=== PATIENT | female | born 2000 | race Caucasian/White ===

== ENCOUNTER → 2018-08-29 | Outpatient (CLI) | payer OTHER ==
--- NOTE | 2018-08-29 14:32 | US ---
EXAMINATION TYPE: Transabdominal DATE OF EXAM: 08/29/2018 1:41 PM COMPARISON: NONE CLINICAL HISTORY: Z36 CONFIRM DATES. EXAM PERFORMED: Transabdominal (TA) EXAM MEASUREMENTS: GESTATIONAL AGE / DATING Physician Established: (13 weeks/3 days) EDC: 03/03/2019 Dates by LMP: (13 weeks/3 days) EDC: 03/03/2019 Dates by First Scan: NO PREVIOUS Dates by Current Scan for: (13 weeks/3 days) EDC: 03/03/2019 MATERNAL ANATOMY Uterus: 12.5 X 10.2 X11.2 CM Right Ovary: OUT OF FIELD OF VIEW Left Ovary: OUT OF FIELD OF VIEW Post CDS / Adnexa: WNL Presence of free fluid: NO Presence of corpus luteal cyst: NO Presence of subchorionic bleed: NO GESTATION / SURVEY CRL: 7.1 CM (13 weeks/3 days) Heart Rate: 146 bpm Rhythm: Normal IUP: Viable IUP Date of LMP: 05/27/2018 Beta HcG (if available): Impression: SINGLE, VIABLE IUP OF 13 WKS 3 DAYS WITH EDC 03/03/2019
== END | disposition home or self-care (01) ==
LOC: RADUSWWP 12:55
PROVIDERS: ATTEND Obstetrics & Gynecology
DX: Z36.9 Encounter for antenatal screening, unspecified (principal); Z3A.13 13 weeks gestation of pregnancy
CPT/HCPCS: 76801

== ENCOUNTER 2019-02-26 03:00 | Inpatient (IN) | payer OTHER ==
[2019-02-26] MEDS ORDERED: CARBOPROST TROMETHAMINE 250 MCG/ML 1 ML AMP IM PRN (03:49)
[2019-02-26] MEDS ORDERED: AMPICILLIN 2,000 MG in SODIUM CHLORIDE 0.9% 100 ML IVPB STA (03:49)
[2019-02-26] MEDS ORDERED: METHYLERGONOVINE 0.2 MG/ML 1 ML AMP IM PRN (03:49)
[2019-02-26] MEDS ORDERED: LIDOCAINE 0.5% (PF) 5 MG/ML (50 ML SDV) SQ PRN (03:49)
[2019-02-26] MEDS ORDERED: OXYTOCIN 10 UNIT/ML 1 ML VIAL IM PRN (03:49)
[2019-02-26] MEDS ORDERED: TERBUTALINE 1 MG/ML VIAL SQ PRN (03:49)
[2019-02-26 04:19] VITALS: BMI 23.0
[2019-02-26 04:34] LABS: Basophils % (A) 0 %; Eosinophils # (A) 0.2 k/uL (0-0.7); Eosinophils % (A) 1 %; HCT 38.3 % (34.0-46.0); HGB 12.6 gm/dL (11.4-16.0); Lymphocytes # (A) 1.7 k/uL (1.0-4.8); Lymphocytes % (A) 15 %; MCH 28.7 pg (25.0-35.0); MCHC 32.9 g/dL (31.0-37.0); MCV 87.2 fL (80.0-100.0); Mean Platelet Volume 9.4; Monocytes # (A) 0.6 k/uL (0-1.0); Monocytes % (A) 5 %; Neutrophils % (A) 78 %; Platelet Count 180 k/uL (150-450); RDW 13.3 % (11.5-15.5); WBC 11.6 k/uL (3.8-10.6)
[2019-02-26] MEDS: LACTATED RINGERS 1,000 ML IV SCH ×4 (04:37→21:07)
[2019-02-26] MEDS: OXYTOCIN 30 UNITS/500 ML NS 30 UNIT in SALINE 1 500ML.BAG IV SCH (05:43)
[2019-02-26] MEDS ORDERED: BUTORPHANOL 1 MG/ML 1 ML VIAL IV PRN (07:51)
[2019-02-26] MEDS: AMPICILLIN 1,000 MG in SODIUM CHLORIDE 0.9% 50 ML IVPB SCH ×2 (09:18→14:02)
[2019-02-26] MEDS ORDERED: fentaNYL (PF) 50 MCG/ML 5 ML AMP ONE (09:23)
[2019-02-26] MEDS ORDERED: SODIUM CHLORIDE 0.9% 100 ML BAG ONE (09:23)
[2019-02-26] MEDS ORDERED: ROPIVACAINE 5MG/ML 20ML VIAL ONE (09:23)
[2019-02-26] MEDS ORDERED: CITRIC ACID-SODIUM CITRATE 15 ML CUP PO ONE (15:17)
[2019-02-26] MEDS ORDERED: MORPHINE SULFATE (PF) 0.3 MG/0.3 ML SYR ONE (15:36)
[2019-02-26] MEDS ORDERED: OXYTOCIN 10 UNIT/ML 1 ML VIAL ONE (15:36)
[2019-02-26] MEDS ORDERED: HYDROmorphone (PF) 1 MG/ML ONE (15:36)
[2019-02-26] MEDS ORDERED: ONDANSETRON 4 MG/2 ML VIAL ONE (15:36)
[2019-02-26] MEDS ORDERED: NALBUPHINE 10 MG/ML (1 ML AMP) ONE (15:36)
[2019-02-26] MEDS ORDERED: CHLOROPROCAINE 3% 30 MG/ML 20 ML VIAL ONE (15:36)
[2019-02-26] MEDS ORDERED: KETOROLAC 30 MG/ML 1 ML VIAL ONE (15:36)
[2019-02-26] MEDS ORDERED: HYDROcodone/APAP 7.5-325MG 1 EACH TAB PO PRN (16:16)
[2019-02-26] MEDS ORDERED: NALOXONE 0.4 MG/ML 1 ML VIAL IV PRN (16:16)
[2019-02-26] MEDS ORDERED: MEASLES-MUMPS-RUBELLA VACC/PF 12,500 UNIT/0.5 ML VIAL SQ ONE (16:16)
[2019-02-26] MEDS ORDERED: diphenhydrAMINE 50 MG CAP PO PRN (16:16)
[2019-02-26] MEDS ORDERED: ONDANSETRON 4 MG/2 ML VIAL IVP PRN (16:16)
[2019-02-26] MEDS ORDERED: diphenhydrAMINE 25 MG CAP PO PRN (16:16)
[2019-02-26] MEDS ORDERED: METOCLOPRAMIDE 5 MG/ML 2 ML VIAL IVP PRN (16:16)
[2019-02-26] MEDS ORDERED: ZOLPIDEM 5 MG TAB PO PRN (16:16)
[2019-02-26] MEDS ORDERED: ACETAMINOPHEN TAB 325 MG TAB PO PRN (16:16)
[2019-02-26] MEDS ORDERED: diphenhydrAMINE 50 MG/ML 1 ML VIAL IVP PRN ×2 (16:16)
[2019-02-26] MEDS ORDERED: KETOROLAC 30 MG/ML 1 ML VIAL IVP PRN (16:16)
--- NOTE | 2019-02-26 16:18 | P.HPOB ---
History of Present Illness H&P Date: 02/26/19 Chief Complaint: Intrauterine at term: Spontaneous rupture membranes Patient is a 18-year-old at 39 weeks gestation who arrives following spontaneous rupture membranes at approximately 1:30 AM. Her course heavy, complicated by several episodes of numbness and tingling for which she was seen in the emergency room. All labs and studies were found to be normal and we could not find a specific reason for her symptoms. We did consult maternal- medicine but there was no further recommendations and symptoms resolve spontaneously at approximately 33 weeks. Otherwise she is feeling well and angela every 2-3 minutes. She is dilated to 6 cm heart percent effaced basically 0 station. Category 1 tracing is noted. Past Medical History Past Medical History: Asthma Additional Past Medical History / Comment(s): as a child History of Any Multi-Drug Resistant Organisms: None Reported Past Surgical History: No Surgical Hx Reported Past Anesthesia/Blood Transfusion Reactions: No Reported Reaction Past Psychological History: Depression Smoking Status: Never smoker Past Alcohol Use History: None Reported Past Drug Use History: None Reported - Past Family History Mother Family Medical History: No Reported History Medications and Allergies Allergies Allergy/AdvReac Type Severity Reaction Status Date / Time Sulfa (Sulfonamide Allergy Swelling Verified 02/26/19 03:09 Antibiotics) Exam Osteopathic Statement: *. No significant issues noted on an osteopathic structural exam other than those noted in the History and Physical/Consult. Vital Signs Temp Pulse Resp BP Pulse Ox 02/26/19 03:10 98.9 F 92 16 133/77 92 L Intake and Output 02/26/19 02/26/19 02/26/19 06:59 14:59 22:59 Intake Total 2049 Output Total 250 Balance 1800 Intake: Intake, IV Titration 2049 Amount Ampicillin 1,000 mg In 50 Sodium Chloride 0.9% 50 ml @ 100 mls/hr IVPB Q4H COLLIN Rx#:[id number] Lactated Ringers 1,000 ml 2000 @ 125 mls/hr IV .Q8H COLLIN Rx#:[id number] Output: Urine 250 Other: # Voids 2 Weight 66.723 kg - OBG Physical Exam Breast: both: normal (no masses) Abdomen: bowel sounds normal, no diffuse tenderness, no bruit present, no guarding noted, no hepatomegaly, no splenomegaly, no mass Vulva: both: normal Vagina: normal moisture, no discharge Cervix: no lesion, no discharge Uterus: normal size, normal contour Adnexa: both: normal Anus/Rectum: normal perianal skin, no rectal mass, no hemorrhoids, heme negative Results Result Diagrams: 02/26/19 04:20 Abnormal Lab Results - Last 24 Hours (Table) 02/26/19 Range/Units 04:20 WBC 11.6 H (3.8-10.6) k/uL Neutrophils # 9.0 H (1.3-7.7) k/uL
--- NOTE | 2019-02-26 16:25 | P.OP ---
Date of Procedure: 02/26/19 Preoperative Diagnosis: Intrauterine at term: Failure to descend/arrest of second stage of labor Postoperative Diagnosis: Same with cephalopelvic disproportion Procedure(s) Performed: Primary low transverse section Anesthesia: epidural Surgeon: Chuck Tellez Shooter Helper #1: Dodie Muniz Estimated Blood Loss (ml): 100 IV fluids (ml): 600 Urine output (ml): 50 Pathology: none sent Condition: stable Disposition: floor Operative Findings: Male scores of 4 and 8 at one and 5 minutes weight of 7 lbs. 0 oz. Description of Procedure: Patient was taken to the operating suite where a epidural anesthetic was found be adequate. A risks and benefits discussion was held with the patient prior to proceeding to the section and did include specifically bleeding and infection and some difficulties delivery of the baby due to how low she was. Baby was had biparietal diameter at 0 station but significant But had developed and the baby was not coming any lower despite 2 hours of adequate pushing. Initially a Pfannenstiel skin incision was made and this incision was then carried through to the underlying layer of the fascia with the second knife. Fascia was then nicked in midline and this opening was extended laterally with Lagunas scissors. Superior and inferior aspect of this incision were then grasped tented up and bluntly and sharply dissected off the rectus muscles. Rectus muscles were then divided midline and blunt dissection through the peritoneum was made. This opening was then extended superiorly and inferiorly with good visualization of both bowel bladder. Bladder blade was placed and the bladder flap identified. It was entered sharply with Metzenbaums sponsors and extended across face the uterus. Knife was then used to incise uterus and this incision was fully developed with hemostat and then bluntly extended. Baby's head was very low in the vagina and a nurse was preparing to push from below but we were able to rotate the baby up high enough that we're able to bring the baby into the incision and out of the vagina. Once baby was brought up mouth nares were bulb suctioned anterior posterior shoulders were easily delivered followed by the remainder the baby. Nursery personnel was present and assumed care immediately. Umbilical cord was clamped cut usual fashion. Placenta was then delivered intact Pitocin was added to the IV. Uterus was wasn't exteriorized cleared of clots and debris and closed in 2 layers with 0 Vicryl suture following placement of Allis clamps to delineate boundaries. Once excellent hemostasis was felt to be obtained 3-0 Vicryl was used to reapproximate the bladder flap. Blood and debris was then suctioned from the posterior cul-de-sac and uterus was reinserted into the abdomen. Peritoneal layer was then reapproximated with 0 Vicryl suture. Fascial layer was closed with 0 Vicryl suture. One layer of 3-0 Vicryl was used to reapproximate the skin. Skin was then closed with 3-0 Vicryl subcuticular. Sponge, lap, needle counts were all correct 2. Patient was then taken to the recovery room in stable and satisfactory condition.
[2019-02-27] MEDS: SENNOSIDES-DOCUSATE SODIUM 1 EACH TAB PO SCH ×2 (01:16→08:45)
[2019-02-27] MEDS: LACTATED RINGERS 1,000 ML IV SCH ×4 (05:05→17:43)
[2019-02-27] MEDS: AMPICILLIN 1,000 MG in SODIUM CHLORIDE 0.9% 50 ML IVPB SCH ×2 (05:07→05:08)
[2019-02-27 07:28] LABS: Basophils % (A) 0 %; Eosinophils # (A) 0.1 k/uL (0-0.7); Eosinophils % (A) 1 %; HCT 32.7 % (34.0-46.0); HGB 10.8 gm/dL (11.4-16.0); Lymphocytes # (A) 1.5 k/uL (1.0-4.8); Lymphocytes % (A) 10 %; MCV 87.8 fL (80.0-100.0); Mean Platelet Volume 9.5; Monocytes # (A) 0.6 k/uL (0-1.0); Monocytes % (A) 4 %; Neutrophils # (A) 13.2 k/uL (1.3-7.7); Neutrophils % (A) 85 %; Platelet Count 165 k/uL (150-450); RBC 3.73 m/uL (3.80-5.40); RDW 14.5 % (11.5-15.5); WBC 15.5 k/uL (3.8-10.6)
--- NOTE | 2019-02-27 08:48 | P.PNOBGPC ---
Subjective - Subjective Principal diagnosis: Postop day 1 Interval history: Patient doing very well postop day 1. She is involuting, voiding tolerating a diet. Patient reports: Reports appetite normal, Reports voiding normally, Reports pain well controlled, Reports ambulating normally : doing well Objective - Vital Signs Latest vital signs: Vital Signs Temp Pulse Resp BP Pulse Ox 02/27/19 04:00 98.1 F 71 18 117/61 97 02/27/19 00:00 98.1 F 71 18 122/63 97 02/26/19 20:00 98.1 F 73 18 129/80 98 02/26/19 18:26 98.4 F 80 18 135/87 100 02/26/19 17:56 98.2 F 64 18 139/83 100 02/26/19 17:26 96 18 139/76 98 02/26/19 17:11 18 118/57 98 02/26/19 16:56 75 18 113/54 97 02/26/19 16:41 64 16 103/57 99 02/26/19 16:26 98.5 F 96 18 109/70 100 Intake and Output 02/26/19 02/27/19 02/27/19 22:59 06:59 14:59 Intake Total 200 Output Total 600 Balance -400 Intake: Oral 200 Output: Urine 600 Other: Voiding Method Indwelling Catheter # Voids 100 # Emeses 1 - Exam Lungs: bilateral: normal Chest: Normal S1, Normal S2 Extremities: Present: normal Abdomen: Present: normal appearance, soft. Absent: distention, tenderness Incision: Present: normal, dry, intact Uterus: Present: normal, firm - Labs Labs: Abnormal Lab Results - Last 24 Hours (Table) 02/27/19 Range/Units 06:24 WBC 15.5 H (3.8-10.6) k/uL RBC 3.73 L (3.80-5.40) m/uL Hgb 10.8 L (11.4-16.0) gm/dL Hct 32.7 L (34.0-46.0) % Neutrophils # 13.2 H (1.3-7.7) k/uL
[2019-02-27] MEDS: IBUPROFEN 600 MG TAB PO PRN (15:56)
[2019-02-27] MEDS: OXYTOCIN 30 UNITS/500 ML NS 30 UNIT in SALINE 1 500ML.BAG IV SCH (17:42)
[2019-02-28] MEDS: IBUPROFEN 600 MG TAB PO PRN ×3 (00:24→23:18)
[2019-02-28] MEDS: SENNOSIDES-DOCUSATE SODIUM 1 EACH TAB PO SCH ×3 (00:31→23:18)
--- NOTE | 2019-02-28 07:00 | P.PNOBGPC ---
Subjective - Subjective Patient reports: Reports appetite normal, Reports voiding normally, Reports pain well controlled, Reports ambulating normally : doing well Objective - Vital Signs Latest vital signs: Vital Signs Temp Pulse Resp BP Pulse Ox 02/28/19 00:00 98.2 F 88 18 115/59 98 02/27/19 20:00 97.6 F 85 18 135/59 02/27/19 16:00 99.0 F 89 16 127/68 02/27/19 12:00 16 02/27/19 09:00 98.1 F 72 16 105/54 Intake and Output 02/27/19 02/27/19 02/28/19 14:59 22:59 06:59 Intake Total 250 Balance 250 Intake: Oral 250 Other: # Voids 1 - Exam Lungs: bilateral: normal Chest: Normal S1, Normal S2 Extremities: Present: normal Abdomen: Present: normal appearance, soft. Absent: distention, tenderness Incision: Present: normal, dry, intact Uterus: Present: normal, firm - Labs Labs: Abnormal Lab Results - Last 24 Hours (Table) 02/27/19 Range/Units 06:24 WBC 15.5 H (3.8-10.6) k/uL RBC 3.73 L (3.80-5.40) m/uL Hgb 10.8 L (11.4-16.0) gm/dL Hct 32.7 L (34.0-46.0) % Neutrophils # 13.2 H (1.3-7.7) k/uL Assessment and Plan Assessment: Post operative day #2. Patient is resting without complaints and wishes to go home. Vital signs are stable and she is afebrile. Uterus is firm nontender and her incision is intact and dry. Patient's tolerating regular diet and ambulating and urinating without difficulty. Patient's felt to be stable for discharge home today if she wishes, otherwise I instructed her to stay until tomorrow. (1) delivery delivered Current Visit: Yes Status: Acute Code(s): O82 - ENCOUNTER FOR QUINTIN SCHULTZ WITHOUT INDICATION SNOMED Code(s): 039079649
--- NOTE | 2019-02-28 07:09 | P.DS ---
Providers Date of admission: 02/26/19 03:38 Expected date of discharge: 02/28/19 Attending physician: Chuck Tellez Primary care physician: Stated None - Discharge Diagnosis(es) (1) delivery delivered Current Visit: Yes Status: Acute Hospital Course: Please see dictated H&P and delivery note per Dr. Tellez on this patient's admission. Brief summary this is a 19-year-old 1 para 0 female presented to labor and delivery with spontaneous rupture membranes. Patient is given ampicillin for positive group B strep culture and Pitocin augmentation of labor. Patient pushes for approximately 2 hours and subsequent undergoes a primary low transverse section for cephalopelvic dystocia. Postoperative patient does well and on postoperative day #2 wishes to go home. Patient's felt be stable for discharge home follow up with Dr. Tellez in 1 week. Procedures: Primary low transverse section Patient Condition at Discharge: Good Plan - Discharge Summary New Discharge Prescriptions: New Ibuprofen [Motrin] 600 mg PO Q6HR PRN #30 tab PRN Reason: Mild Pain Or Fever >= 100.5 HYDROcodone/APAP 7.5-325MG [[place] 7.5-325] 1 each PO Q6H PRN #12 tab PRN Reason: Severe Pain Discharge Medication List HYDROcodone/APAP 7.5-325MG [[place] 7.5-325] 1 each PO Q6H PRN #12 tab 02/28/19 [Rx] Ibuprofen [Motrin] 600 mg PO Q6HR PRN #30 tab 02/28/19 [Rx] Follow up Appointment(s)/Referral(s): Chuck Tellez DO [Doctor of Osteopathic Medicine] - 04/08/19 11:30 am (Please call the office Saturday for an appointment with Dr. Villarreal in approximately 1 week for an incision check.) Patient Instructions/Handouts: (DC) Activity/Diet/Wound Care/Special Instructions: No heavy lifting or strenuous activities for 6 weeks. Please call if any fever, chills, excessive vaginal bleeding, and/or abdominal pain. Discharge Disposition: HOME SELF-CARE
[2019-03-01] MEDS: OXYTOCIN 30 UNITS/500 ML NS 30 UNIT in SALINE 1 500ML.BAG IV SCH (00:57)
--- NOTE | 2019-03-01 07:16 | P.PNOBGPC ---
Subjective - Subjective Patient reports: Reports appetite normal, Reports voiding normally, Reports pain well controlled, Reports ambulating normally : doing well, other (Jaundice) Objective - Vital Signs Latest vital signs: Vital Signs Temp Pulse Resp BP Pulse Ox 03/01/19 00:00 97.6 F 89 18 121/74 95 02/28/19 16:00 98.3 F 77 16 118/75 02/28/19 08:00 98.4 F 89 16 125/74 - Exam Lungs: bilateral: normal Chest: Normal S1, Normal S2 Extremities: Present: normal Abdomen: Present: normal appearance, soft. Absent: distention, tenderness Incision: Present: normal, dry, intact Uterus: Present: normal, firm Assessment and Plan Assessment: Postoperative day #3. Patient is resting without new complaints. Patient initially wanted to go home yesterday however her baby did have some jaundice issues that require phototherapy and therefore had to stay. Patient tends undergoing home today if the baby is able to go otherwise she'll be able to stay 1 more day. Plan today is to continue routine care and discharge home if possible. (1) delivery delivered Current Visit: Yes Status: Acute Code(s): O82 - ENCOUNTER FOR DELIVERY WITHOUT INDICATION SNOMED Code(s): 093945272
[2019-03-01 09:31] VITALS: BP 115/59
[2019-03-01] MEDS: SENNOSIDES-DOCUSATE SODIUM 1 EACH TAB PO SCH (09:49)
[2019-03-01] MEDS ORDERED: MEASLES-MUMPS-RUBELLA VACC/PF 12,500 UNIT/0.5 ML VIAL SQ ONE (14:00)
[2019-03-01] MEDS: IBUPROFEN 600 MG TAB PO PRN (14:36)
[2019-03-01 16:25] VITALS: PULSE 136; RESP 40; TEMP 98.2
== END 2019-03-01 17:22 | disposition home or self-care (01) | DRG 788 ==
LOC: FBPOP 03:00 → 4FBP 03:38
PROVIDERS: ADMIT Obstetrics & Gynecology; ATTEND Obstetrics & Gynecology
PROC: 00HU33Z Insertion of Infusion Device into Spinal Canal, Percutaneous Approach (ICD-10-PCS; 2019-02-26)
PROC: 3E0R3BZ Introduction of Anesthetic Agent into Spinal Canal, Percutaneous Approach (ICD-10-PCS; 2019-02-26)
PROC: 10D00Z1 Extraction of Products of Conception, Low, Open Approach (ICD-10-PCS; principal; 2019-02-26 15:27)
PROC: 3E0134Z Introduction of Serum, Toxoid and Vaccine into Subcutaneous Tissue, Percutaneous Approach (ICD-10-PCS; 2019-03-01)
DX: O65.4 Obstructed labor due to fetopelvic disproportion, unspecified (principal); O62.1 Secondary uterine inertia; O99.52 Diseases of the respiratory system complicating childbirth; J45.909 Unspecified asthma, uncomplicated; Z37.0 Single live birth; O99.824 Streptococcus B carrier state complicating childbirth; Z3A.39 39 weeks gestation of pregnancy; Z23 Encounter for immunization; Z86.59 Personal history of other mental and behavioral disorders; Z88.2 Allergy status to sulfonamides
CPT/HCPCS: 59025; 84112; 85025; 86850; 86900; 86901; 90471; 90707; 99213